=== PATIENT | female | born 1960 | race Caucasian/White ===

== ENCOUNTER 2019-04-14 20:52 | Emergency (ER) | payer BC ==
[2019-04-14 21:26] VITALS: BP 177/57
--- NOTE | 2019-04-14 21:45 | EDM.PDOC ---
ED HPI GENERAL MEDICAL PROBLEM - General Chief Complaint: Back Pain or Injury Stated Complaint: PAIN IN LOWER BACK RIGHT SIDE Time Seen by Provider: 04/14/19 21:35 Source of Information: Reports: Patient History Limitations: Reports: No Limitations - History of Present Illness INITIAL COMMENTS - FREE TEXT/NARRATIVE: HISTORY AND PHYSICAL: History of present illness: Patient is a 58-year-old female who presents to the emergency room today with complaints of right upper back pain along her ribs. She denies any injury, trauma or falls. Pain is exacerbated with movement, coughing or deep breathing. Patient denies any fever, chills, headache, change in vision, syncope or near syncope. Denies any chest pain, back pain, shortness of breath or cough. Denies any abdominal pain, nausea, vomiting, diarrhea, constipation or dysuria. Has not noted any blood in urine or stool. Patient has been eating and drinking appropriately. Review of systems: As per history of present illness and below otherwise all systems reviewed and negative. Past medical history: As per history of present illness and as reviewed below otherwise noncontributory. Surgical history: As per history of present illness and as reviewed below otherwise noncontributory. Social history: See social history for further information Family history: As per history of present illness and as reviewed below otherwise noncontributory. Physical exam: General: HEENT: Atraumatic, normocephalic, pupils equal and reactive bilaterally, negative for conjunctival pallor or scleral icterus, mucous membranes moist, TMs normal bilaterally, throat clear, neck supple, nontender, trachea midline. No drooling or trismus noted. No meningeal signs. No hot potato voice noted. Lungs: Clear to auscultation, breath sounds equal bilaterally, chest nontender. Heart: S1S2, regular rate and rhythm without overt murmur Abdomen: Soft, nondistended, nontender. Negative for masses or hepatosplenomegaly. Negative for costovertebral tenderness. Skin: No shingles-like lesions are noted to the skin. Intact, warm, dry. No lesions or rashes noted. Extremities: Atraumatic, moves all extremities per self without difficulty or deficits, negative for cords or calf pain. Neurovascular unremarkable. Neuro: Awake, alert, oriented. Cranial nerves II through XII unremarkable. Cerebellum unremarkable. Motor and sensory unremarkable throughout. Exam nonfocal. Notes: X-ray shows no acute findings. We will give her some tramadol and encouraged her to follow-up with her primary care provider. Supportive care measures were reviewed and discussed. Voices understanding and is agreeable to plan of care. Denies any further questions or concerns at this time. Diagnostics: UA, chest x-ray Therapeutics: Toradol Prescription: Tramadol Impression: Rib pain, right Plan: 1. Please use Tylenol and/or Ibuprofen as needed for pain and fever management. Tramadol for moderate to severe pain. 2. Get plenty of Rest. You can apply ice and/or heat as needed for comfort. 3. Please follow up with your primary care provider. Return to the ED as needed as discussed. Definitive disposition and diagnosis as appropriate pending reevaluation and review of above. right back Pain Score (Numeric/FACES): 8 - Related Data Allergies Allergy/AdvReac Type Severity Reaction Status Date / Time No Known Allergies Allergy Verified 04/01/18 10:58 Home Meds: Home Meds Aspirin [Rachel Chewable Aspirin] 81 mg PO DAILY 03/23/14 [History] Enalapril/Hydrochlorothiazide [Enalapril-HCTZ 10-25 MG] 10 - 25 mg PO DAILY 08/30 [History] Fish Oil/[place]-3 Fatty Acids [Fish Oil] 1,000 mg PO DAILY 03/23/14 [History] Cholecalciferol (Vitamin D3) [Vitamin D3] 2,000 unit PO DAILY 04/04/18 [History] Insulin Aspart [NovoLOG] 0 unit SQ TID 04/04/18 [History] Insulin Glarg,Human.Rec.Analog [Lantus Solostar] 65 unit SQ BEDTIME 04/04/18 [ History] Insulin Lispro [Humalog Kwikpen U-100] 0 unit SQ TIDMEALS 04/04/18 [History] Liraglutide [Victoza] 1.2 mg SQ QAM 04/04/18 [History] Tumeric 500 mg PO DAILY 04/04/18 [History] atorvaSTATin Calcium [Atorvastatin Calcium] 40 mg PO BEDTIME 04/04/18 [History] Past Medical History HEENT History: Reports: Other (See Below) Other HEENT History: has an upper front dental appliance Cardiovascular History: Reports: High Cholesterol, Hypertension Gastrointestinal History: Reports: Colon Polyp, Diverticulosis, GERD 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 History: Reports: Fracture Other 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 History: hx of fx 2 lumbar vertebrate Endocrine/Metabolic History: Reports: Diabetes, Type II, IDDM, Obesity/BMI 30+ - Infectious Disease History Infectious Disease History: Reports: Chicken Pox, Measles - Past Surgical History GI Surgical History: Reports: Colonoscopy Social & Family History - Tobacco Use Smoking Status *Q: Never Smoker - Recreational Drug Use Recreational Drug Use: No ED ROS GENERAL - Review of Systems Review Of Systems: Comprehensive ROS is negative, except as noted in HPI. ED EXAM,LOWER BACK PAIN/INJURY - Physical Exam Exam: See Below (See dication) Course - Vital Signs Last Recorded V/S: Last Vital Signs Temp 95.4 F 04/14/19 21:23 Pulse 65 04/14/19 21:23 Resp 18 04/14/19 21:23 BP 177/57 H 04/14/19 21:23 Pulse Ox 97 04/14/19 21:23 - Orders/Labs/Meds Orders: Active Orders 24 hr Category Date Time Status Chest 2V [CR] Stat Exams 04/14/19 21:52 Taken Labs: Laboratory Tests 04/14/19 Range/Units 21:16 Urine Color YELLOW Urine Appearance CLEAR Urine pH 5.5 (5.0-8.0) Ur Specific Fossil 1.020 (1.001-1.035) Urine Protein NEGATIVE (NEGATIVE) mg/dL Urine Glucose (UA) >=1000 (NEGATIVE) mg/dL Urine Ketones NEGATIVE (NEGATIVE) mg/dL Urine Occult Blood NEGATIVE (NEGATIVE) Urine Nitrite NEGATIVE (NEGATIVE) Urine Bilirubin NEGATIVE (NEGATIVE) Urine Urobilinogen 0.2 (<2.0) EU/dL Ur Leukocyte Esterase NEGATIVE (NEGATIVE) Meds: Medications Discontinued Medications Generic Name Dose Route Start Last Admin Trade Name Freq PRN Reason Stop Dose Admin Ketorolac Tromethamine 60 mg 04/14/19 21:52 Toradol IM 04/14/19 21:53 ONETIME ONE Departure - Departure Time of Disposition: 22:10 Disposition: Home, Self-Care 01 Clinical Impression: Rib pain on right side - Discharge Information Referrals: Kassidy Burr PROFESSOR OF FAMILY MEDICINE [Primary Care Provider] - Forms: ED Department Discharge Additional Instructions: The following information is given to patients seen in the emergency department who are being discharged to home. This information is to outline your options for follow-up care. We provide all patients seen in our emergency department with a follow-up referral. The need for follow-up, as well as the timing and circumstances, are variable depending upon the specifics of your emergency department visit. If you don't have a primary care physician on staff, we will provide you with a referral. We always advise you to contact your personal physician following an emergency department visit to inform them of the circumstance of the visit and for follow-up with them and/or the need for any referrals to a consulting specialist. The emergency department will also refer you to a specialist when appropriate. This referral assures that you have the opportunity for follow-up care with a specialist. All of these measure are taken in an effort to provide you with optimal care, which includes your follow-up. Under all circumstances we always encourage you to contact your private physician who remains a resource for coordinating your care. When calling for follow-up care, please make the office aware that this follow-up is from your recent emergency room visit. If for any reason you are refused follow-up, please contact the [facility] Emergency Department at and asked to speak to the emergency department charge nurse. [facility] [address] [place] [id number] [id number] 1. Please use Tylenol and/or Ibuprofen as needed for pain and fever management. Tramadol for moderate to severe pain. 2. Get plenty of Rest. You can apply ice and/or heat as needed for comfort. 3. Please follow up with your primary care provider. Return to the ED as needed as discussed. Sepsis Event Note - Evaluation Sepsis Screening Result: No Definite Risk - Focused Exam Vital Signs: Vital Signs Temp Pulse Resp BP Pulse Ox 04/14/19 21:23 95.4 F 65 18 177/57 H 97 Date Exam was Performed: 04/14/19 Time Exam was Performed: 22:08 - My Orders Last 24 Hours: My Active Orders 04/14/19 21:52 Chest 2V [CR] Stat - Assessment/Plan Last 24 Hours: My Active Orders 04/14/19 21:52 Chest 2V [CR] Stat
[2019-04-14] MEDS ORDERED: Ketorolac 60 MG/2 ML SDV IM ONE (21:52)
[2019-04-14 22:20] VITALS: PULSE 76
--- NOTE | 2019-04-14 22:23 | CR ---
INDICATION: posterior right side pain TECHNIQUE: Chest 2 views. COMPARISON: None. FINDINGS: Cardiovascular and mediastinum: Heart size and vasculature are normal in caliber and appearance. Mediastinum is within normal limits. Lungs and pleural spaces: Lungs are clear. No sign of infiltrate or mass. No sign of pleural effusion. No pneumothorax. Bones and soft tissues: No significant findings. IMPRESSION: Unremarkable chest. Dictated by: Ga Howard MD @ 04/14/2019 22:21:11 (Electronically Signed)
== END 2019-04-14 22:21 | disposition home or self-care (01) ==
LOC: MW.ED 20:52
DX: R07.81 Pleurodynia (principal); I10 Essential (primary) hypertension; E78.00 Pure hypercholesterolemia, unspecified; E11.9 Type 2 diabetes mellitus without complications; E66.9 Obesity, unspecified; Z79.4 Long term (current) use of insulin; Z79.82 Long term (current) use of aspirin; Z79.899 Other long term (current) drug therapy
CPT/HCPCS: 71046; 81003; 96372; 99283; J1885

== ENCOUNTER 2019-10-13 23:24 | Emergency (ER) | payer BC ==
--- NOTE | 2019-10-14 00:25 | EDM.PDOC ---
ED HPI GENERAL MEDICAL PROBLEM - General Chief Complaint: ENT Problem Stated Complaint: RT EAR PROBLEM Time Seen by Provider: 10/14/19 00:00 - History of Present Illness INITIAL COMMENTS - FREE TEXT/NARRATIVE: History of present illness: 59-year-old female presenting with concern for cap of an insulin needle stuck in her ear. Apparently the patient was giving herself her insulin when she her ear started itching and she reached up without thinking to itch the ear when the cap got stuck in her ear canal. She tried to get it out with tweezers but ended up pushing it further back. Review of systems: As per history of present illness and below otherwise all systems reviewed and negative. Past medical history: As per history of present illness and as reviewed below otherwise noncontributory. Diabetes Surgical history: As per history of present illness and as reviewed below otherwise noncontributory. Social history: No reported history of drug or alcohol abuse. Family history: As per history of present illness and as reviewed below otherwise noncontributory. Physical exam: GEN: no acute distress, well appearing HEENT: Atraumatic, normocephalic, mucous membranes moist, right ear canal with green insulin needle top In canal. No bleeding. After the cap was removed the ear was reexamined. TM is clear with no bleeding or perforation. Neck: supple, nontender, trachea midline. Lungs: No respiratory distress. Heart: RRR Extremities: Atraumatic. Neurovascularly intact. Neuro: Awake, alert, oriented. Neuro Exam nonfocal. Skin: warm, dry, no lesions Diagnostics: [] Therapeutics: [] MDM: Impression: [] Plan: [] Definitive disposition and diagnosis as appropriate pending reevaluation and review of above. - Related Data Allergies Allergy/AdvReac Type Severity Reaction Status Date / Time No Known Allergies Allergy Verified 10/13/19 23:38 Home Meds: Home Meds Aspirin [Rachel Chewable Aspirin] 81 mg PO DAILY 03/23/14 [History] Enalapril/Hydrochlorothiazide [Enalapril-HCTZ 10-25 MG] 10 - 25 mg PO DAILY 03/23/14 [History] Fish Oil/[place]-3 Fatty Acids [Fish Oil] 1,000 mg PO DAILY 03/23/14 [History] Cholecalciferol (Vitamin D3) [Vitamin D3] 2,000 unit PO DAILY 04/04/18 [History] Insulin Glarg,Human.Rec.Analog [Lantus Solostar] 66 unit SQ BEDTIME 04/04/18 [History] Tumeric 500 mg PO DAILY 04/04/18 [History] Insuln Asp Prot/Insulin Aspart [NovoLOG Mix 70-30] 0 unit SQ TIDAC 10/13/19 [History] Rosuvastatin Calcium [Crestor] 40 mg PO BEDTIME 10/13/19 [History] Past Medical History HEENT History: Reports: Impaired Vision, Other (See Below) Other HEENT History: has an upper front dental appliance; wears glassess Cardiovascular History: Reports: High Cholesterol, Hypertension Gastrointestinal History: Reports: Colon Polyp, Diverticulosis, GERD 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 History: Reports: Fracture Other 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 History: hx of fx 2 lumbar vertebrate Endocrine/Metabolic History: Reports: Diabetes, Type II, IDDM, Obesity/BMI 30+ - Infectious Disease History Infectious Disease History: Reports: Chicken Pox - Past Surgical History HEENT Surgical History: Reports: None Cardiovascular Surgical History: Reports: None GI Surgical History: Reports: Colonoscopy Endocrine Surgical History: Reports: None 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 Surgical History: Reports: None Social & Family History - Family History Family Medical History: Noncontributory - Tobacco Use Smoking Status *Q: Never Smoker Second Hand Smoke Exposure: No - Caffeine Use Caffeine Use: Reports: Coffee - Recreational Drug Use Recreational Drug Use: No ED ROS ENT - Review of Systems Review Of Systems: See Below (See dictation) ED EXAM, ENT - Physical Exam Exam: See Below (See HPI) ED ENT PROCEDURES - Foreign Body Removal Indication:: Right ear foreign body Consent Obtained: Patient Performing Doctor:: Kelly Mckeon Foreign Body Other Location Comment:: cap of insulin needle in right ear canal Anesthesia Type: None Findings: Piece of plastic top of insulin needle was removed with alligator forceps without complication Complications: No Course - Vital Signs Last Recorded V/S: Last Vital Signs Temp 97.9 F 10/13/19 23:35 Pulse 84 10/13/19 23:35 Resp 18 10/13/19 23:35 BP 108/72 10/13/19 23:35 Pulse Ox 97 10/13/19 23:35 Departure - Departure Time of Disposition: 00:24 Disposition: Home, Self-Care 01 Clinical Impression: Ear foreign body Qualifiers: Encounter type: initial encounter Laterality: right Qualified Code(s): T16.1XXA - Foreign body in right ear, initial encounter - Discharge Information Instructions: Ear Foreign Body, [id number] Referrals: Kassidy Burr NP [Primary Care Provider] - Forms: ED Department Discharge Additional Instructions: The following information is given to patients seen in the emergency department who are being discharged to home. This information is to outline your options for follow-up care. We provide all patients seen in our emergency department with a follow-up referral. The need for follow-up, as well as the timing and circumstances, are variable depending upon the specifics of your emergency department visit. If you don't have a primary care physician on staff, we will provide you with a referral. We always advise you to contact your personal physician following an emergency department visit to inform them of the circumstance of the visit and for follow-up with them and/or the need for any referrals to a consulting speci alist. The emergency department will also refer you to a specialist when appropriate. This referral assures that you have the opportunity for follow-up care with a specialist. All of these measure are taken in an effort to provide you with optimal care, which includes your follow-up. Under all circumstances we always encourage you to contact your private physician who remains a resource for coordinating your care. When calling for follow-up care, please make the office aware that this follow-up is from your recent emergency room visit. If for any reason you are refused follow-up, please contact the Emergency Department at and asked to speak to the emergency department charge nurse. [facility] [address] [place] [address] [phone] [address] [id number] Please do not put anything else in your ear. Sepsis Event Note (ED) - Evaluation Sepsis Screening Result: No Definite Risk - Focused Exam Vital Signs: Vital Signs Temp Pulse Resp BP Pulse Ox 10/13/19 23:35 97.9 F 84 18 108/72 97
[2019-10-14 00:41] VITALS: BP 120/66; PULSE 79
== END 2019-10-14 00:40 | disposition home or self-care (01) ==
LOC: MW.ED 23:24
DX: T16.1XXA Foreign body in right ear, initial encounter (principal); E78.00 Pure hypercholesterolemia, unspecified; I10 Essential (primary) hypertension; E11.9 Type 2 diabetes mellitus without complications; E66.9 Obesity, unspecified; Z68.41 Body mass index [BMI] 40.0-44.9, adult; Z79.82 Long term (current) use of aspirin; Z79.4 Long term (current) use of insulin; Z79.899 Other long term (current) drug therapy
CPT/HCPCS: 69200; 99282

== ENCOUNTER 2020-08-24 21:08 | Emergency (ER) | payer BC ==
[2020-08-24 21:29] VITALS: BP 122/79; PULSE 88
[2020-08-24] MEDS ORDERED: Cephalexin 500 MG Cap PO ONE (21:38)
--- NOTE | 2020-08-24 21:42 | EDM.PDOC ---
ED HPI GENERAL MEDICAL PROBLEM - General Chief Complaint: Skin Complaint Stated Complaint: LT ARM BUG BITE Time Seen by Provider: 08/24/20 21:18 Source of Information: Reports: Patient History Limitations: Reports: No Limitations - History of Present Illness INITIAL COMMENTS - FREE TEXT/NARRATIVE: HISTORY AND PHYSICAL: History of present illness: The patient is a 60-year-old female who presents to the emergency department with 3 circular erythema areas located on her left lateral inner elbow which started 3 days ago. The patient states it started with an itch and then the red circles started. The patient states it feels like a hurt. She has never had this before. She did not put any creams or ointments nor took anything oral [id number] for the itch. Patient denies any fever, chills, headache, change in vision, syncope or near syncope. Denies any chest pain, back pain, shortness of breath or cough. Denies any abdominal pain, nausea, vomiting, diarrhea, constipation or dysuria. Has not noted any blood in urine or stool. Patient has been eating and drinking appropriately. The patient is a diabetic on NovoLog. Her glucose in the ER according to her monitor was 149. The patient is hemodynamically stable with a blood pressure of 122/79 and a heart rate of 84. She is afebrile with a temperature of 98. Review of systems: As per history of present illness and below otherwise all systems reviewed and negative. Past medical history: As per history of present illness and as reviewed below otherwise noncontributory. Surgical history: As per history of present illness and as reviewed below otherwise noncontributory. Social history: See social history for further information Family history: As per history of present illness and as reviewed below otherwise noncontributory. Physical exam: General: Well developed and well nourished. Alert and orientated x 3. Nontoxic in appearance and in no acute distress. Vital signs are stable and have been reviewed by me. Nursing notes were reviewed. HEENT: Atraumatic, normocephalic, pupils equal and reactive bilaterally, negative for conjunctival pallor or scleral icterus, mucous membranes moist, TMs normal bilaterally, throat clear, neck supple, nontender, trachea midline. No drooling or trismus noted. No meningeal signs. No hot potato voice noted. Lungs: Clear to auscultation bilaterally. No wheezes, rales, or rhonchi. Chest nontender. Normal work of breathing, no accessory muscles used. Heart: S1S2, regular rate and rhythm without overt murmur, gallops, or rubs. No JVD. No peripheral edema Abdomen: Soft, nondistended, nontender. Normoactive bowel sounds. Negative for masses or costovertebral tenderness. Pelvis: Stable nontender. Genitourinary/Rectal: Deferred. Skin: Intact, warm, dry. 3 circular erythema areas, 0.5 diameter, 1 cm diameter, 1.2 cm diameter with tiny blister like papules. No fluctuant noted. Areas are slightly tender to touch. Hematologic: No petechiae or purpra. Mucosa appropriate color and normal nail bed color and refill. Extremities: Atraumatic, moves all extremities per self without difficulty or deficits, negative for cords or calf pain. Neurovascular unremarkable. Neuro: Awake, alert, oriented. Cranial nerves II through XII unremarkable. Cerebellum unremarkable. Motor and sensory unremarkable throughout. Exam nonfocal. Psychiatric: Mood and affect are appropriate. Normal thought process. Answering questions appropriately. Notes: *This patient was seen and evaluated during the 2019 SARS-CoV-2 novel coronavirus pandemic period. Community viral transmission is ongoing at time of this encounter and the emergency department is operating under pandemic response procedures. After examination and discussion the patient is agreeable to oral antibiotics and monitoring the areas at home. The patient was educated on which signs to monitor and when to return to the emergency room. Discussed with the patient that her glucoses could be erratic and to keep a close eye on it. She has family at the bedside that is very supportive. I have talked with the patient about today's findings, in addition to providing specific details for plan of care. Reassessment at the time of disposition demonstrates that the patient is in no acute distress. The patient is stable for discharge, counseling was provided and we discussed in great detail signs and symptoms that would prompt them to return to the Emergency Department. Medication, follow up and supportive care measures were reviewed and discussed. Voices understanding and is agreeable to plan of care. Denies any further questions or concerns at this time. Therapeutics: Cephalexin 500 mg Prescription: Cephalexin 500 mg p.o. every 6 hours for 10 days Impression: Skin infection Plan: 1. You were evaluated today on an emergent basis. Your skin areas were found to the possibly caused by MRSA and due to your diabetes we will treat you with cephalexin 500 mg every 6 hours for 10 days. If the areas continue to get bigger, or become painful please follow-up with your primary care provider your blood glucose could be erratic over the next 10 days so keep a close eye on him and adjust as necessary. Keep the area clean and dry with normal soap. Avoid antibacterial soap. 2. You can alternate Tylenol and ibuprofen as needed for pain and fever management. 3. We encourage you to follow up with your primary care provider and/or recommended specialist in the next few days for re-evaluation and further care/management. 4. If your symptoms should worsen, new symptoms develop or any of the signs and symptoms we discussed should arise please return to the emergency room or call 911 (if needed). Definitive disposition and diagnosis as appropriate pending reevaluation and rev iew of above. Left Arm Pain Score (Numeric/FACES): 5 - Related Data Allergies Allergy/AdvReac Type Severity Reaction Status Date / Time No Known Allergies Allergy Verified 10/13/19 23:38 Home Meds: Home Meds Aspirin [Rachel Chewable Aspirin] 81 mg PO DAILY 03/23/14 [History] Enalapril/Hydrochlorothiazide [Enalapril-HCTZ 10-25 MG] 10 - 25 mg PO DAILY 03/23/14 [History] Fish Oil/[place]-3 Fatty Acids [Fish Oil] 1,000 mg PO DAILY 03/23/14 [History] Cholecalciferol (Vitamin D3) [Vitamin D3] 2,000 unit PO DAILY 04/04/18 [History] Insulin Glarg,Human.Rec.Analog [Lantus Solostar] 66 unit SQ BEDTIME 04/04/18 [History] Tumeric 500 mg PO DAILY 04/04/18 [History] Insuln Asp Prot/Insulin Aspart [NovoLOG Mix 70-30] 0 unit SQ TIDAC 10/13/19 [History] Rosuvastatin Calcium [Crestor] 20 mg PO BEDTIME 10/13/19 [History] Empagliflozin [Jardiance] 10 mg PO DAILY 08/24/20 [History] cephALEXin [Cephalexin] 500 mg PO Q6HR 10 Days #39 capsule 08/24/20 [Rx] Past Medical History HEENT History: Reports: Impaired Vision, Other (See Below) Other HEENT History: has an upper front dental appliance; wears glassess Cardiovascular History: Reports: High Cholesterol, Hypertension Gastrointestinal History: Reports: Colon Polyp, Diverticulosis, 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: 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 History: Reports: Fracture Other 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 History: hx 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 2 lumbar vertebrate Endocrine/Metabolic History: Reports: Diabetes, Type II, IDDM, Obesity/BMI 30+ - Infectious Disease History Infectious Disease History: Reports: Chicken Pox - Past Surgical History HEENT Surgical History: Reports: None Cardiovascular Surgical History: Reports: None GI Surgical History: Reports: Colonoscopy Endocrine Surgical History: Reports: None 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 Surgical History: Reports: None Social & Family History - Family History Family Medical History: No Pertinent Family History - Tobacco Use Tobacco Use Status *Q: Never Tobacco User Second Hand Smoke Exposure: No - Caffeine Use Caffeine Use: Reports: Coffee - Recreational Drug Use Recreational Drug Use: No ED ROS GENERAL - Review of Systems Review Of Systems: Comprehensive ROS is negative, except as noted in HPI. ED EXAM, SKIN/RASH Exam: See Below (See dictation) Course - Vital Signs Last Recorded V/S: Last Vital Signs Temp 98.6 F 08/24/20 21:16 Pulse 88 08/24/20 21:16 Resp 16 08/24/20 21:16 BP 122/79 08/24/20 21:16 Pulse Ox 91 L 08/24/20 21:16 - Orders/Labs/Meds Meds: Medications Discontinued Medications Generic Name Dose Route Start Last Admin Trade Name Reneq PRN Reason Stop Dose Admin Cephalexin 500 mg 08/24/20 21:38 08/24/20 21:44 Cephalexin 500 Mg Cap PO 08/24/20 21:39 500 mg ONETIME ONE Administration Departure - Departure Time of Disposition: 21:42 Disposition: Home, Self-Care 01 Condition: Good Clinical Impression: Skin infection - Discharge Information *PRESCRIPTION DRUG MONITORING PROGRAM REVIEWED*: Not Applicable *COPY OF PRESCRIPTION DRUG MONITORING REPORT IN PATIENT SILVESTRE: Not Applicable Prescriptions: cephALEXin [Cephalexin] 500 mg PO Q6HR 10 Days #39 capsule Instructions: Cellulitis, Adult, [id number] Referrals: Shwetha Tirado NP [Primary Care Provider] - Forms: ED Department Discharge Additional Instructions: The following information is given to patients seen in the emergency department who are being discharged to home. This information is to outline your options for follow-up care. We provide all patients seen in our emergency department with a follow-up referral. The need for follow-up, as well as the timing and circumstances, are variable depending upon the specifics of your emergency department visit. If you don't have a primary care physician on staff, we will provide you with a referral. We always advise you to contact your personal physician following an emergency department visit to inform them of the circumstance of the visit and for follow-up with them and/or the need for any referrals to a consulting specialist. The emergency department will also refer you to a specialist when appropriate. This referral assures that you have the opportunity for follow-up care with a specialist. All of these measure are taken in an effort to provide you with optimal care, which includes your follow-up. Under all circumstances we always encourage you to contact your private phys ician who remains a resource for coordinating your care. When calling for follow-up care, please make the office aware that this follow-up is from your recent emergency room visit. If for any reason you are refused follow-up, please contact the [facility] Emergency Department at and asked to speak to the emergency department charge nurse. [facility] - Primary Care [address] [place] [address] [address] Plan: 1. You were evaluated today on an emergent basis. Your skin areas were found to the possibly caused by MRSA and due to your diabetes we will treat you with cephalexin 500 mg every 6 hours for 10 days. If the areas continue to get bigger, or become painful please follow-up with your primary care provider your blood glucose could be erratic over the next 10 days so keep a close eye on him and adjust as necessary. Keep the area clean and dry with normal soap. Avoid antibacterial soap. 2. You can alternate Tylenol and ibuprofen as needed for pain and fever management. 3. We encourage you to follow up with your primary care provider and/or recommended specialist in the next few days for re-evaluation and further care/management. 4. If your symptoms should worsen, new symptoms develop or any of the signs and symptoms we discussed should arise please return to the emergency room or call 911 (if needed). Sepsis Event Note (ED) - Evaluation Sepsis Screening Result: No Definite Risk - Focused Exam Vital Signs: Vital Signs Temp Pulse Resp BP Pulse Ox 08/24/20 21:16 98.6 F 88 16 122/79 91 L
== END 2020-08-24 21:56 | disposition home or self-care (01) ==
LOC: MW.ED 21:08
DX: L08.9 Local infection of the skin and subcutaneous tissue, unspecified (principal); E78.00 Pure hypercholesterolemia, unspecified; I10 Essential (primary) hypertension; E11.9 Type 2 diabetes mellitus without complications; E66.9 Obesity, unspecified; Z68.34 Body mass index [BMI] 34.0-34.9, adult; Z79.82 Long term (current) use of aspirin; Z79.4 Long term (current) use of insulin; Z79.899 Other long term (current) drug therapy
CPT/HCPCS: 99282; A9270; 99283

== ENCOUNTER 2021-04-05 23:56 | Emergency (ER) | payer BC ==
--- NOTE | 2021-04-06 00:28 | EDM.PDOC ---
ED HPI GENERAL MEDICAL PROBLEM - General Chief Complaint: Lower Extremity Injury/Pain Stated Complaint: FALL, BROKEN FINGER Time Seen by Provider: 04/06/21 00:05 - History of Present Illness INITIAL COMMENTS - FREE TEXT/NARRATIVE: History of present illness: [] Patient fell. It was a simple slip and fall. Patient did not have an LOC. She injured her nose, her left hand, and her left knee. She is not on a blood thinner. She is able to breathe through her nose. Her left hand has an obvious deformity. There is abrasion over the anterior left knee. She is able to walk on it but it hurts. Review of systems: As per history of present illness and below otherwise all systems reviewed and negative. Past medical history: As per history of present illness and as reviewed below otherwise noncontributory. Surgical history: As per history of present illness and as reviewed below otherwise noncontributory. Social history: No reported history of drug or alcohol abuse. Family history: As per history of present illness and as reviewed below otherwise noncontributory. Physical exam: Constitutional - well developed, well-nourished and in no acute distress HEENT - normocephalic, no evidence of trauma - external nose and mouth normal except for small abrasion on the right lateral nose. No septal hematoma. Neck cleared by Nexus criteria.- no mass in neck and no JVD - mucosae moist EYES - full EOM, PERRL, no icterus - no evidence of inflammation, injection, or drainage Respiratory - no respiratory distress, equal bilateral expansion, lungs clear to auscultation and no abnormal lung sounds Cardiovascular - Regular Rhythm with S1 and S2 appreciated and no murmur, gallop or rub. GI - abdomen soft without distension or organomegaly - normal bowel sounds - no guard or rebound 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 tenderness of the left knee with no gross deformity. Deformity with ulnar deviation of the distal left small finger. No gross deformity of long bones or joints - no tenderness, swelling or edema Neurologic - Alert and oriented times four - CN II-XII grossly intact - motor sensory and coordination symmetrically normal Psychiatric - appropriate mood and affect with normal thought content Hematologic - No petechiae or purpura - mucosa appropriate color and sclera not pale - normal nail bed color and refill Integument -partial-thickness abrasion over most of the anterior surface of the left knee starting above the patella proceeding distal to the patella. No rash or evidence of trauma - normal turgor Diagnostics: [] Therapeutics: [] Impression: [] Plan: [] Definitive disposition and diagnosis as appropriate pending reevaluation and review of above. Left Finger-Little Pain Score (Numeric/FACES): 3 - Related Data Allergies Allergy/AdvReac Type Severity Reaction Status Date / Time No Known Allergies Allergy Verified 04/06/21 00:10 Home Meds: Home Meds Aspirin [Rachel Chewable Aspirin] 81 mg PO DAILY 03/23/14 [History] Enalapril/Hydrochlorothiazide [Enalapril-HCTZ 10-25 MG] 10 - 25 mg PO DAILY 03/23/14 [History] Fish Oil/[place]-3 Fatty Acids [Fish Oil] 1,000 mg PO DAILY 03/23/14 [History] Cholecalciferol (Vitamin D3) [Vitamin D3] 2,000 unit PO DAILY 04/04/18 [History] Insulin Glarg,Human.Rec.Analog [Lantus Solostar] 66 unit SQ BEDTIME 04/04/18 [History] Tumeric 500 mg PO DAILY 04/04/18 [History] Insuln Asp Prot/Insulin Aspart [NovoLOG Mix 70-30] 0 unit SQ TIDAC 10/13/19 [History] Rosuvastatin Calcium [Crestor] 20 mg PO BEDTIME 10/13/19 [History] Empagliflozin [Jardiance] 10 mg PO DAILY 08/24/20 [History] cephALEXin [Cephalexin] 500 mg PO Q6HR 10 Days #39 capsule 08/24/20 [Rx] Acetaminophen/oxyCODONE [Percocet 325-10 MG] 1 tab PO Q4H PRN #12 tab 04/06/21 [Rx] Insulin Glarg,Human.Rec.Analog [Lantus Solostar] 1 dose PO DAILY 04/06/21 [History] Past Medical History HEENT History: Reports: Impaired Vision, Other (See Below) Other HEENT History: has an upper front dental appliance; wears glassess Cardiovascular History: Reports: High Cholesterol, Hypertension Gastrointestinal History: Reports: Colon Polyp, Diverticulosis, GERD 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: 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 History: Reports: Fracture Other 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 History: hx of fx 2 lumbar vertebrate Endocrine/Metabolic History: Reports: Diabetes, Type II, IDDM, Obesity/BMI 30+ - Infectious Disease History Infectious Disease History: Reports: Chicken Pox - Past Surgical History HEENT Surgical History: Reports: None Cardiovascular Surgical History: Reports: None GI Surgical History: Reports: Colonoscopy Endocrine Surgical History: Reports: None 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 Surgical History: Reports: None Social & Family History - Family History Family Medical History: No Pertinent Family History - Tobacco Use Tobacco Use Status *Q: Never Tobacco User - Caffeine Use Caffeine Use: Reports: Coffee - Recreational Drug Use Recreational Drug Use: No Review of Systems - Review of Systems Review Of Systems: Comprehensive ROS is negative, except as noted in HPI. ED EXAM, GENERAL - Physical Exam Exam: See Below Free Text/Narrative:: My physical exam is in the [facility] ED TRAUMA EXTREMITY PROCEDURES - Pre-Sedation Evaluation Pre Anesthesia Assessment: Teeth: Reports: Normal Dentition - Joint Reduction Left Fingers Sedation: Other (No anesthesia) Pre-Procedure NV Status: Normal Post-Procedure NV Status: Normal Technique: Traction/Counter Traction Number of Attempts: 1 Post-Reduction Imaging: Completely Reduced Joint Reduction Complications: Yes Progress/Comments: Patient had small finger reduced with traction countertraction. Neurovascular structures remain intact. - Endotracheal Intubation Pre-Oxygenation: Assisted with BVM, 100% FiO2 Confirmed By: CO2 Indicator, Bilateral Breath Sounds Tube Secured By: By Provider Course - Vital Signs Last Recorded V/S: Last Vital Signs Temp 36.4 C 04/06/21 00:11 Pulse 85 04/06/21 00:11 Resp 16 04/06/21 00:11 BP 117/63 04/06/21 00:11 Pulse Ox 96 04/06/21 00:11 - Orders/Labs/Meds Orders: Active Orders 24 hr Category Date Time Status DME for Discharge [COMM] Stat Oth 04/06/21 01:14 Ordered Meds: Medications Discontinued Medications Generic Name Dose Route Start Last Admin Trade Name Freq PRN Reason Stop Dose Admin Oxycodone/Acetaminophen 1 tab 04/06/21 01:15 Acetaminophen/Oxycodone 325-10 Mg Tab PO 04/06/21 01:16 ONETIME ONE - Re-Assessments/Exams Free Text/Narrative Re-Assessment/Exam: 04/06/21 01:17 Neurovascular integrity verified after the splint. Postop post reduction x-rays were normal. Departure - Departure Time of Disposition: 01:45 Disposition: Home, Self-Care 01 Condition: Good Clinical Impression: Fall, Abrasion of nose, Dislocated finger, Contusion of left knee, Abrasion, left knee, initial encounter - Discharge Information Prescriptions: Acetaminophen/oxyCODONE [Percocet 325-10 MG] 1 tab PO Q4H PRN #12 tab PRN Reason: Pain (Severe 7-10) Instructions: Cast or Splint Care, Adult, [id number], Abrasion, Contusion Referrals: Shwetha Tirado NP [Primary Care Provider] - Ray Son [Ordering Only Provider] - Monty Martin MD [Ordering Only Provider] - Forms: ED Department Discharge Additional Instructions: Your pain medicine prescription went to [facility] which is open on Wednesday Wear the splint at least 2 days. If there is any instability call one of the hand surgeons recommended in the referral section of your discharge instructions. Ice packs to sore spots. [facility] - Primary Care [address] [place] [address] [place] [address] The following information is given to patients seen in the emergency department who are being discharged to home. This information is to outline your options for follow-up care. We provide all patients seen in our emergency department with a follow-up referral. The need for follow-up, as well as the timing and circumstances, are variable depending upon the specifics of your emergency department visit. If you don't have a primary care physician on staff, we will provide you with a referral. We always advise you to contact your personal physician following an emergency department visit to inform them of the circumstance of the visit and for follow-up with them and/or the need for any referrals to a consulting specialist. The emergency department will also refer you to a specialist when appropriate. This referral assures that you have the opportunity for follow-up care with a specialist. All of these measure are taken in an effort to provide you with optimal care, which includes your follow-up. Under all circumstances we always encourage you to contact your private physician who remains a resource for coordinating your care. When calling for follow-up care, please make the office aware that this follow-up is from your recent emergency room visit. If for any reason you are refused follow-up, please contact the [facility] Emergency Department at and asked to speak to the emergency department charge nurse. Sepsis Event Note (ED) - Evaluation Sepsis Screening Result: No Definite Risk - Focused Exam Vital Signs: Vital Signs Temp Pulse Resp BP Pulse Ox 04/06/21 00:11 36.4 C 85 16 117/63 96 - My Orders Last 24 Hours: My Active Orders 04/06/21 01:14 DME for Discharge [COMM] Stat - Assessment/Plan Last 24 Hours: My Active Orders 04/06/21 01:14 DME for Discharge [COMM] Stat
--- NOTE | 2021-04-06 01:12 | CR ---
INDICATION: Knee pain following fall TECHNIQUE: Knee radiograph 4 views left COMPARISON: None FINDINGS: Bone: No acute fractures or aggressive bone lesions are identified. There is a corticated ossicle along the superior margin of the patella. Joint: Mild 3 compartment osteoarthritis is seen. No significant knee effusion is seen. Soft tissue: Unremarkable. No radiopaque foreign bodies are seen. IMPRESSION: 1. No acute osseous injuries or abnormalities are noted. Dictated by Melvin Yancey MD @ 04/06/2021 1:11:02 AM Dictated by: Melvin Yancey MD @ 04/06/2021 01:11:05 (Electronically Signed)
--- NOTE | 2021-04-06 01:12 | CR ---
INDICATION: Hand pain following fall TECHNIQUE: Hand radiograph 3 views left COMPARISON: None FINDINGS: Bone: No acute fractures or aggressive bone lesions are identified. Joint: Dislocation of the 5th proximal interphalangeal joint is noted. Soft tissue: Unremarkable. No radiopaque foreign bodies are seen. IMPRESSION: 1. Dislocation of the 5th proximal interphalangeal joint is noted. Dictated by Melvin Yancey MD @ 04/06/2021 1:10:18 AM Dictated by: Melvin Yancey MD @ 04/06/2021 01:10:23 (Electronically Signed)
[2021-04-06] MEDS ORDERED: Acetaminophen/oxyCODONE 325-10 MG Tab PO ONE (01:15)
--- NOTE | 2021-04-06 01:16 | CR ---
INDICATION: Finger dislocation status post reduction TECHNIQUE: Hand radiograph 2 views left COMPARISON: 04/06/2021 FINDINGS: Bone: On the lateral exam, there is a tiny linear density along the palmar base of the 5th middle phalanx which may represent a small avulsion fracture fragment. The 5th proximal interphalangeal joint has been reduced to anatomic alignment. Joint: Unremarkable otherwise. Soft tissue: Unremarkable. No radiopaque foreign bodies are seen. IMPRESSIONS: 1. The 5th proximal interphalangeal joint has been reduced to anatomic alignment. 2. On the lateral exam, there is a tiny linear density along the palmar base of the 5th middle phalanx which may represent a small avulsion fracture fragment. This region was obscured on prior lateral radiograph which prevents a direct comparison. Dictated by Melvin Yancey MD @ 04/06/2021 1:14:42 AM Dictated by: Melvin Yancey MD @ 04/06/2021 01:14:46 (Electronically Signed)
[2021-04-06 01:43] VITALS: BP 109/61; PULSE 83
== END 2021-04-06 01:43 | disposition home or self-care (01) ==
LOC: MW.ED 23:56
DX: S63.257A Unspecified dislocation of left little finger, initial encounter (principal); S80.02XA Contusion of left knee, initial encounter; S00.31XA Abrasion of nose, initial encounter; E11.9 Type 2 diabetes mellitus without complications; E78.00 Pure hypercholesterolemia, unspecified; I10 Essential (primary) hypertension; K21.9 Gastro-esophageal reflux disease without esophagitis; E66.9 Obesity, unspecified; Z79.82 Long term (current) use of aspirin; Z79.4 Long term (current) use of insulin; Z68.37 Body mass index [BMI] 37.0-37.9, adult; W01.0XXA Fall on same level from slipping, tripping and stumbling without subsequent striking against object, initial encounter
CPT/HCPCS: 26770; 73120; 73130; 73562; 99283; A9270

== ENCOUNTER 2023-08-13 06:48 | Day surgery (SDC) | payer BC ==
[2023-08-13] MEDS ORDERED: propofoL 50 ML ONE (07:22)
[2023-08-13] MEDS ORDERED: Water For Injection, Sterile 20 ML ONE (07:22)
[2023-08-13] MEDS ORDERED: dexmedeTOMIDine HCl 200 MCG/2 ML SDV ONE (07:22)
[2023-08-13] MEDS: Lactated Ringers 1,000 ML IV SCH (07:36)
[2023-08-13] MEDS ORDERED: Lactated Ringers 1,000 ML IV SCH (09:00)
[2023-08-13 13:04] VITALS: BP 96/50; PULSE 72
== END 2023-08-13 09:38 | disposition home or self-care (01) ==
LOC: MW.SDS 06:48
PROVIDERS: ATTEND Surgery
DX: K21.00 Gastro-esophageal reflux disease with esophagitis, without bleeding (principal); K63.5 Polyp of colon; K57.30 Diverticulosis of large intestine without perforation or abscess without bleeding; Z86.010 Personal history of colon polyps; E11.40 Type 2 diabetes mellitus with diabetic neuropathy, unspecified; I10 Essential (primary) hypertension; E11.69 Type 2 diabetes mellitus with other specified complication; E78.5 Hyperlipidemia, unspecified; E66.9 Obesity, unspecified; Z68.39 Body mass index [BMI] 39.0-39.9, adult; Z79.82 Long term (current) use of aspirin; Z79.84 Long term (current) use of oral hypoglycemic drugs; Z79.4 Long term (current) use of insulin; Z79.899 Other long term (current) drug therapy; Z91.012 Allergy to eggs; Z91.018 Allergy to other foods
CPT/HCPCS: 43239; 45380; 45385; 82947; J2704; J7120; 00813; J3490

== ENCOUNTER 2023-10-22 18:07 | Emergency (ER) | payer BC, MEDICARE ==
[2023-10-22 18:19] VITALS: BP 115/50; PULSE 85
[2023-10-22] MEDS: traMADol 50 MG Tab PO STA (19:01)
== END 2023-10-22 20:14 | disposition home or self-care (01) ==
LOC: MW.ED 18:07
DX: S83.92XA Sprain of unspecified site of left knee, initial encounter (principal); I10 Essential (primary) hypertension; E78.00 Pure hypercholesterolemia, unspecified; K21.9 Gastro-esophageal reflux disease without esophagitis; E11.9 Type 2 diabetes mellitus without complications; E66.9 Obesity, unspecified; Z68.39 Body mass index [BMI] 39.0-39.9, adult; Z79.899 Other long term (current) drug therapy; Z75.8 Other problems related to medical facilities and other health care; Z91.048 Other nonmedicinal substance allergy status; Z91.018 Allergy to other foods; Z91.012 Allergy to eggs; X50.9XXA Other and unspecified overexertion or strenuous movements or postures, initial encounter
CPT/HCPCS: 73562; 99283; A9270